=== PATIENT | male | born 1975 | race African-American/Black ===

== ENCOUNTER 2018-01-25 21:37 | Emergency (ER) | payer OTHER ==
[2018-01-25] MEDS: IV NORMAL SALINE 1000ML BAG 1,000 ML IV (21:56)
[2018-01-25] MEDS: KETOROLAC 30 MG/ML INJ. IV (22:09)
[2018-01-25] MEDS: diazePAM 5 MG TABLET PO (22:47)
[2018-01-25] MEDS: HYDROcodone/APAP 5/325MG 1 TAB TABLET PO (22:47)
== END 2018-01-25 22:40 | disposition home or self-care (01) ==
LOC: ER 21:37
DX: M54.5 Low back pain (principal); R00.0 Tachycardia, unspecified; E78.00 Pure hypercholesterolemia, unspecified; F17.210 Nicotine dependence, cigarettes, uncomplicated
CPT/HCPCS: 96374; 99284-25; J1885; J7030